=== PATIENT | female | born 1975 | race Two or more races ===

== ENCOUNTER 2025-05-16 09:08 | Outpatient (AMB) | payer MEDICAID, SELFPAY ==
[2025-05-16 09:25] VITALS: BP 144/89; PULSE 71; RESP 18; TEMP 36.6; O2SAT 97; BMI 34.2
--- NOTE | 2025-05-16 09:25 | GSCOFFNT_ITS ---
Vital Signs - [facility] 05/16/25 09:25 Height 1.65 m Height Method Stated Weight 93.468 kg Weight Measurement Method Standing Scale BMI 34.2 BP 144/89 H Blood Pressure Source Automatic Cuff Blood Pressure Location Right Upper Arm Position Sitting Respiration 18 Pulse 71 Pulse Source Monitor Temp 97.8 F Temp Source Temporal Artery Scan Pulse Oximetry (%) 97 Oxygen Delivery Method Room Air Med/Allergies Allergies & Medications Allergies No Known Drug Allergies Allergy (Verified 05/16/25 09:26) Medication Reconciliation citalopram 20 mg tablet 20 mg PO QDAY 05/16/25 [History Confirmed 05/16/25] MA Intake Visit Data Collection New Patient or Established: New Patient (never been to [facility]) Seen by Clinical Staff ONLY (RN/MA): No Reason for Visit:: COLONOSCOPY REFERRAL Pain Present Currently: No Pain scale:: 0 Pain Scale Used: Arrington-Bellamy/Numerical Baster Hand Required: No PCP or OBGYN visit in last 3 months: Yes Hx Now: No Date of Last Menstrual Period: 04/26/25 Do You Feel Safe at Home: Yes Authorities Contacted: N/A Smoking Status Smoking Status: Never smoker Immunization / Flu Flu Vaccine in the Last 12 Months: Yes Flu Vaccine Exclusion Criteria: Already Received Past Medical History Social History SMOKING STATUS: Smoking status: Never smoker Travel Risk Travel Hx Recent Travel: No HPI HPI Narrative 49F referred for first screening colonoscopy. Pt states she has constipation which she relates to her citalopram but she denies any changes in stool caliber, blood in stool, anorexia or unintentional weight loss PMH: Kidney stones PSHx: Lithotripsy Meds: Citalopram Allergies: NKDA Family hx: No known CRC in family ROS Review of Systems Systems Reviewed: All systems reviewed, normal except as documented Objective/Exam General General Appearance: alert, cooperative and well groomed Resp Respiratory exam: Absent respiratory distress Assessment & Plan Diagnosis / Problem List (1) Encounter for screening colonoscopy for [id number] patient: Status: Acute Assessment & Plan: 49F presenting for first screening colonoscopy. I explained benefits/risks including bleeding, the possibility of needing to abort for safety as well as the risk of perforation requiring emergency surgery. All questions were answered and pt is agreeable to proceeding Office Procedures GNS Level of Care Nursing/Assessment Patient Status: Initial/New Patient Nursing Assessment/Reassesment: Medication Reconciliation, Update PMH in EMR and Vital Signs Coordination of Care: Complex Care and Chronic Disease 1-5, Education Complex Pt/Fam, Consent,records obtained, informed consent, 1 Ins Authorization, Results/Orders obtained and Staff clarify orders New Patient Charge New Patient Point Assignment: [id number] New Patient Point Charge: HOSPICE ADMITTING CLERK Level 3 ([id number]) Patient Portal Questionaires Social History Tobacco History Smoking Status: Never smoker Domestic Abuse History Do You Feel Safe at Home: Yes Review of Systems Report any current symptoms Only answer those that you have currently: Past Medical History Past Medical History Have you ever been diagnosed with any of the following:
== END 2025-05-16 09:37 | disposition home or self-care (01) ==
LOC: HODSRG 09:08
PROVIDERS: PCP Physician Assistant Medical; Referring Provider Physician Assistant Medical; Supervising Provider Surgery; Visit Provider Surgery
DX: Z12.11 Encounter for screening for malignant neoplasm of colon (principal)
CPT/HCPCS: 99203; G0463

== ENCOUNTER 2025-05-23 08:00 | Day surgery (SDC) | payer MEDICAID, SELFPAY ==
[2025-05-22 12:13] VITALS: BMI 33.7
[2025-05-22 14:31] LABS: HCG Qualitative,Urine Negative
[2025-05-23] VITALS (12 sets, daily range): BP systolic 139–182; BP diastolic 63–107; PULSE 62–78; RESP 11–18; TEMP 36.4–36.7; O2SAT 97–100; BMI 33.7
[2025-05-23] MEDS: RINGERS LACTATED 1000 ML 1,000 ML 125 ML IV (09:21)
[2025-05-23] MEDS: fentaNYL CIT INJ 50 mCg/ML AMP 2ML IVP (09:29)
[2025-05-23] MEDS: MIDAZOLAM INJ 1 MG/ML VIAL 2 ML 2 MG IVP (09:29)
[2025-05-23] MEDS: SIMETHICONE 40 MG/0.6 ML ORAL SYRINGE PO (09:29)
--- NOTE | 2025-05-23 09:43 | SUR.PHASEII ---
PT ARRIVED TO PACU, PT ABLE TO RESPONDS TO SIMPLE VERBAL INSTRUCTIONS AND DRIFTED BACK TO SLEEP. NO ACUTE DISTRESS NOTED.
== END 2025-05-23 10:37 | disposition home or self-care (01) ==
PROVIDERS: PCP Family Medicine; Referring Provider Surgery; Visit Provider Surgery
PROC: 0DBE8ZX Excision of Large Intestine, Via Natural or Artificial Opening Endoscopic, Diagnostic (ICD-10-PCS; CPT 45380; principal; 2025-05-23 10:00)
DX: Z12.11 Encounter for screening for malignant neoplasm of colon (principal)
CPT/HCPCS: 45378; 81025; J1200; J2250; J3010; J7120; A9270

== ENCOUNTER 2025-05-30 14:34 | Outpatient (AMB) | payer MEDICAID, SELFPAY ==
--- NOTE | 2025-05-30 14:59 | PD.GSCLVISIT ---
Vital Signs - [facility] 05/30/25 15:05 Height 1.65 m Height Method Measured Weight 94.858 kg Weight Measurement Method Standing Scale BMI 34.8 BP 154/86 H Blood Pressure Source Automatic Cuff Blood Pressure Location Left Upper Arm Position Sitting Respiration 18 Pulse 90 Pulse Source Monitor Temp 97.8 F Temp Source Temporal Artery Scan Pulse Oximetry (%) 98 Oxygen Delivery Method Room Air Med/Allergies Allergies & Medications Allergies No Known Drug Allergies Allergy (Verified 05/30/25 15:06) Medication Reconciliation citalopram 20 mg tablet 20 mg PO QDAY 05/16/25 [History Confirmed 05/30/25] MA Intake Visit Data Collection New Patient or Established: Established Patient (seen at [facility] within 3 years) Seen by Clinical Staff ONLY (RN/MA): No Reason for Visit:: F/U COLONOSCOPY Pain Present Currently: No Pain Scale Used: Arrington-Bellamy/Numerical Material Inspector Required: No PCP or OBGYN visit in last 3 months: Yes Hx Now: No Do You Feel Safe at Home: Yes Authorities Contacted: N/A Smoking Status Smoking Status: Never smoker Immunization / Flu Flu Vaccine in the Last 12 Months: Yes Flu Vaccine Exclusion Criteria: Already Received Past Medical History Past Medical History NEUROLOGIC: Negative Neurological Disorders CARDIAC: Negative Cardiac Disorders or Congestive Heart Failure RESPIRATORY: Negative Chronic Obstructive Pulmonary Disease (COPD) GASTROINTESTINAL: Negative Gastrointestinal Disorders GENITOURINARY: Positive Genitourinary Disorders and Kidney Stones; Negative Renal Disease ENDOCRINE: Negative Diabetes Mellitus Type 1 or Diabetes Mellitus Type 2 HEMATOLOGIC: Negative Blood Disorders OTHER HISTORY: Negative Blood Transfusions, Anesthesia Reactions, Chicken Pox, Measles, Mumps or Cancer Social History SMOKING STATUS: Smoking status: Never smoker ALCOHOL: Alcohol Intake: Never HPI HPI Narrative 49F here for follow up of screening colonoscopy which was negative in setting of fair prep. Pt reports feeling well overall, she feels her constipation has improved since the colonoscopy and she has no other complaints ROS Review of Systems Systems Reviewed: All systems reviewed, normal except as documented Objective/Exam General General Appearance: alert, cooperative and well groomed Resp Respiratory exam: Absent respiratory distress Assessment & Plan Diagnosis / Problem List (1) Encounter to discuss colonoscopy results: Status: Acute Assessment & Plan: 49F here for follow up of screening colonoscopy which was negative in setting of fair prep. Given suboptimal prep I recommended colonoscopy within 7-10 years. All questions were answered and pt expressed understanding Office Procedures GNS Level of Care Nursing/Assessment Patient Status: Established Patient Nursing Assessment/Reassesment: Medication Reconciliation, Update PMH in EMR and Vital Signs Coordination of Care: Complex Care and Chronic Disease 1-5, Consent,records obtained, informed consent, Education Simp Pt/Fam, Results/Orders obtained and Staff clarify orders Established Patient Charge Established Patient Point Assignment: 90 Established Patient Point Charge: EP Level 3 (80-115) Patient Portal Questionaires Social History Tobacco History Smoking Status: Never smoker Alcohol History Alcohol Intake: Never Domestic Abuse History Do You Feel Safe at Home: Yes Review of Systems Report any current symptoms Only answer those that you have currently: Past Medical History Past Medical History Have you ever been diagnosed with any of the following: Cardiology Problems Congestive Heart Failure: No Respiratory Problems Chronic Obstructive Pulmonary Disease (COPD): No Genital/Urinary Problems Renal Disease: No Kidney Stones: Yes Endocrine Problems Diabetes Mellitus Type 1: No Diabetes Mellitus Type 2: No Other Problems Blood Transfusions: No Anesthesia Reactions: No Chicken Pox: No Measles: No Mumps: No Cancer: No
[2025-05-30 15:05] VITALS: BP 154/86; PULSE 90; RESP 18; TEMP 36.6; O2SAT 98; BMI 34.8
== END 2025-05-30 15:07 | disposition home or self-care (01) ==
LOC: HODSRG 14:34
PROVIDERS: PCP Physician Assistant Medical; Referring Provider Physician Assistant Medical; Supervising Provider Surgery; Visit Provider Surgery
DX: Z71.2 Person consulting for explanation of examination or test findings (principal)
CPT/HCPCS: 99213; G0463